=== PATIENT | female | born 1940 | race Caucasian/White ===

== ENCOUNTER → 2017-07-26 | Outpatient (CLI) | payer OTHER, BC ==
[~2017-07-26] VITALS: Ht 152.4 cm; Wt 116.1 kg
[~2017-07-26] MED LIST: FUROSEMIDE40 MG PO; Flexeril PO; HYDROCHLOROTHIA50 MG PO; INDERAL LA80 MG PO; INDERAL80 MG PO; KENALOG,ARISTOC15 G2 TP; LASIX40 MG PO; LIPITOR40 MG PO; LO-DOSE ASPIRIN81 M1 PO; LOTREL 5/201 CAPSULE PO; Lotrel 5/20 PO; NEXIUM40 MG PO; NORCO 5/3251 TABLET PO; TYLENOL EXTRA500 MG PO; VALSARTAN-HCTZ1 EAC2 PO; ZANTAC300 MG PO
== END | disposition home or self-care (01) ==
LOC: AMB 11:22
PROC: 0DB68ZX Excision of Stomach, Via Natural or Artificial Opening Endoscopic, Diagnostic (ICD-10-PCS; principal; 2017-07-26)
DX: K29.50 Unspecified chronic gastritis without bleeding (principal); K44.9 Diaphragmatic hernia without obstruction or gangrene; K21.9 Gastro-esophageal reflux disease without esophagitis; R05 Cough; R10.31 Right lower quadrant pain; E78.5 Hyperlipidemia, unspecified; E66.01 Morbid (severe) obesity due to excess calories; K22.70 Barrett's esophagus without dysplasia; I10 Essential (primary) hypertension; I65.29 Occlusion and stenosis of unspecified carotid artery; R73.9 Hyperglycemia, unspecified
CPT/HCPCS: 88305; 88342 TC; 93005